=== PATIENT | male | born 1950 | race Caucasian/White ===

== ENCOUNTER 2021-06-26 15:10 | Emergency (ER) | payer MEDICARE, SELFPAY ==
--- NOTE | 2021-06-26 15:14 | ED.GENADULT ---
HPI - General Adult General Chief complaint: Ear Stated complaint: bilateral ear pain Time Seen by Provider: 06/26/21 15:14 Source: patient Mode of arrival: ambulatory Limitations: no limitations History of Present Illness HPI narrative: 70-year-old male patient presents to the [facility] with request to get his ears cleaned out. 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 Patient states his right ear is giving her more problems than the left. Patient states he did get some [id number] softener at [facility] that he has been using. Related Data Home Medications Medication Instructions Recorded Confirmed alprazolam 0.25 mg PO BID 06/26/21 06/26/21 bupropion HCl 150 mg PO BID 06/26/21 06/26/21 hydrocodone-acetaminophen 1 tablet PO TID 06/26/21 06/26/21 losartan 100 mg PO DAILY 06/26/21 06/26/21 sertraline 50 mg PO DAILY 06/26/21 06/26/21 Allergies Allergy/AdvReac Type Severity Reaction Status Date / Time Penicillins Allergy Mild Hives / Verified 06/26/21 15:37 Red Face Shrimp Allergy Unknown Hives Uncoded 06/26/21 15:37 STATINS AdvReac Unknown Muscle Pain Uncoded 06/26/21 15:37 Review of Systems Review of Systems: CONSTITUTIONAL: Denies fever, chills, or sweats. EYES: Denies visual changes, redness, or discharge. ENT: Denies rhinorrhea, congestion, sore throat, positive bilateral otalgia but that worse pain on the right than the left. CARDIOVASCULAR: Denies chest pain, palpitations, or edema. RESPIRATORY: Denies cough or dyspnea. GASTROINTESTINAL: Denies abdominal pain, nausea, vomiting, or diarrhea. GENITOURINARY: Denies dysuria or hematuria. SKIN: Denies rash or itching. MUSCULOSKELETAL: Denies back pain, joint pain, or myalgia. NEUROLOGIC: Denies headache, numbness, or weakness. PSYCHIATRIC: Denies anxiety or depression. ON LICENSE OF [facility] Past Medical History Medical History ADD (attention deficit disorder) Anxiety Arthritis Carpal tunnel syndrome of right wrist Cataracts, bilateral Colon polyps DDD (degenerative disc disease) Depression GERD (gastroesophageal reflux disease) Kidney stones Mitral valve prolapse Shoulder fracture, right UTI (urinary tract infection) Surgical History Surgical History History of carpal tunnel surgery rt wrist History of lumbar surgery Hx of arthroscopy of right knee Hx of cataract surgery bilateral Hx of cervical spine surgery Hx of colonoscopy Hx of local excision of skin lesion Hx of prostatectomy partial Hx of total knee arthroplasty lt knee Social History Social History Smoking status: Current every day smoker Gender identity (if verbalized by the patient): Male Comments At the time of my signature I agree with nursing past medical history, surgical, social, and family history. There is no relevant family history pertinent to the presenting complaint. Exam Narrative: GENERAL: Well-appearing, well-nourished, and in no acute distress. HEAD: Normocephalic, atraumatic. EYES: PERRLA and EOMI. ENT: Nares clear, no rhinorrhea or epistaxis. Mucous membranes moist. Unable to visualize eardrum to the left ear there is some cerumen present to the canal. Unable to visualize the right eardrum there does seem to be some impaction of the cerebrum. NECK: Supple. No lymphadenopathy CHEST: Clear to auscultation. No respiratory distress. HEART: Regular rate and rhythm. No murmur heard. Normal peripheral pulses. ABDOMEN: Soft, nontender, nondistended, normal active bowel sounds. EXTREMITIES: Normal range of motion. No edema. SKIN: Warm, dry, no rash. NEURO: No focal deficits. Alert and oriented x3. Course Course Level of Care: Express Care Visit Vital Signs Vital signs: Vital Signs Temperature 36.4 C L 06/26/21
[2021-06-26 15:30] VITALS: BP 147/78; PULSE 90; RESP 18; TEMP 36.4; O2SAT 96
[2021-06-26] MEDS: CARBAMIDE PEROXIDE 6.5% OT SOLN 15 ML BTL 5 DROP RIGHT EAR (15:46)
== END 2021-06-26 16:19 | disposition home or self-care (01) ==
PROVIDERS: Emergency Provider Nurse Practitioner Family
DX: H61.21 Impacted cerumen, right ear (principal); F17.200 Nicotine dependence, unspecified, uncomplicated; M19.90 Unspecified osteoarthritis, unspecified site; H26.9 Unspecified cataract; K21.9 Gastro-esophageal reflux disease without esophagitis; I34.1 Nonrheumatic mitral (valve) prolapse; Z96.652 Presence of left artificial knee joint; F41.9 Anxiety disorder, unspecified; F32.A Depression, unspecified
CPT/HCPCS: 69209; 99213; A9270; G0463

== ENCOUNTER 2022-11-23 12:22 | Emergency (ER) | payer MEDICARE, SELFPAY ==
--- NOTE | ~2022-11-23 | XR_ITS ---
EXAMINATION: XR wrist RT min 3V DATE: 11/23/2022 12:39 INDICATION: Ulnar-sided right wrist pain post injury TECHNIQUE: Posteroanterior, ulnar deviation, oblique, and lateral views of the right wrist were obtai mela. COMPARISON: none FINDINGS: 4 mm ulnar minus variance. Alignment is otherwise normal. No acute fracture. Polyarticular osteoarthr itis severe at the midcarpal joint, moderate at the triscaphe, first carpometacarpal and second and t hird metacarpophalangeal joints and mild at the remaining joints at the right wrist and visualized cherry nd. Corticated loose osteochondral bodies at the dorsal and volar aspects of the wrist and carpus. Mi ld soft tissue swelling at the ulnar side of the wrist. IMPRESSION: 1. 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 No acute osseous abno rmality. Reviewed, dictated and finalized at location B. IMPRESSION: 1. 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 No acute osseous abnormality.
[2022-11-23 12:31] VITALS: BP 146/118; PULSE 92; RESP 16; TEMP 36.5; O2SAT 95
--- NOTE | 2022-11-23 12:44 | ED.GENADULT ---
HPI - General Adult General Chief complaint: Extremity Injury, Upper Stated complaint: Swelling Rt Wrist Time Seen by Provider: 11/23/22 12:45 Source: patient Mode of arrival: ambulatory Limitations: no limitations History of Present Illness HPI narrative: 22-year-old male presented for complaint of right wrist pain and swelling for 4 days after opening a pickle jar and feeling a pop. Swelling worse on the radial aspect of the wrist. Reports decreased ROM to the wrist. Denies numbness, tingling or weakness of the hand; denies redness or bruising. History of right wrist fracture and wanted evaluation. Patient takes norco 10/325 for chronic back pain TID. Related Data Home Medications Medication Instructions Recorded Confirmed alprazolam 0.25 mg tablet 0.25 mg PO BID 06/26/21 11/23/22 bupropion HCl 150 mg tablet,12 hr 150 mg PO BID 06/26/21 11/23/22 sustained-release hydrocodone 10 mg-acetaminophen 1 tablet PO TID 06/26/21 11/23/22 325 mg tablet losartan 100 mg tablet 100 mg PO DAILY 06/26/21 11/23/22 sertraline 50 mg tablet 50 mg PO DAILY 06/26/21 11/23/22 Allergies Allergy/AdvReac Type Severity Reaction Status Date / Time Penicillins AdvReac Mild Hives / Verified 11/23/22 12:30 Red Face STATINS AdvReac Intermediate Muscle Pain Uncoded 11/23/22 12:30 Shrimp AdvReac Mild Hives Uncoded 11/23/22 12:30 Review of Systems Review of Systems: CONSTITUTIONAL: Denies body aches, fever, chills EYES: Denies visual changes ENT: Denies rhinorrhea, congestion CARDIOVASCULAR: Denies chest pain, palpitations, or edema. RESPIRATORY: Denies cough or dyspnea. GASTROINTESTINAL: Denies abdominal pain, nausea, vomiting, or diarrhea. SKIN: Denies rash, itching, or wounds. MUSCULOSKELETAL: per HPI NEUROLOGIC: Denies headache, numbness, tingling, or weakness. All systems reviewed & are unremarkable except as noted in HPI and below PMFSH Past Medical History Medical History ADD (attention deficit disorder) Anxiety Arthritis Carpal tunnel syndrome of right wrist Cataracts, bilateral Colon polyps DDD (degenerative disc disease) Depression GERD (gastroesophageal reflux disease) Kidney stones Mitral valve prolapse Shoulder fracture, right UTI (urinary tract infection) Surgical History Surgical History History of carpal tunnel surgery rt wrist History of lumbar surgery Hx of arthroscopy of right knee Hx of cataract surgery bilateral Hx of cervical spine surgery Hx of colonoscopy Hx of local excision of skin lesion Hx of prostatectomy partial Hx of total knee arthroplasty lt knee Social History Social History Smoking status: Current every day smoker Gender identity (if verbalized by the patient): Male Comments At time of signature, I have reviewed and agree with nursing past medical, surgical, social and family history unless otherwise noted. Please see nursing chart for further information. There is no relevant family history pertinent to the presenting complaint Exam Narrative: GENERAL: Well-appearing EYES: PERRLA, conjunctivae clear NECK: Supple. CHEST: Speaks in full sentences. No respiratory distress. HEART: Regular rate and rhythm. Normal and equal peripheral pulses. EXTREMITIES: Right wrist radial aspect with moderate swelling and tenderness; Limited range of motion at wrist due to pain with movement. Right hand has normal strength and sensation. No ecchymosis, No open wounds, or obvious deformity; alignment normal, pulse palpable and equal bilaterally, skin warm, dry, pink. Capillary refill less than 3 seconds. SKIN: Warm, dry, no rash. NEURO: Alert and oriented x3. PSYCH: Normal mood and affect Course Course Emergency Course: Patient is aware of diagnosis, understands and agrees to treatment plan. Ld
[2022-11-23 13:08] VITALS: BP 122/61; PULSE 87
== END 2022-11-23 13:10 | disposition home or self-care (01) ==
PROVIDERS: Emergency Provider Nurse Practitioner Family
DX: M25.531 Pain in right wrist (principal); M25.431 Effusion, right wrist; F17.200 Nicotine dependence, unspecified, uncomplicated; M19.90 Unspecified osteoarthritis, unspecified site; K21.9 Gastro-esophageal reflux disease without esophagitis; I34.1 Nonrheumatic mitral (valve) prolapse; F41.9 Anxiety disorder, unspecified; F32.A Depression, unspecified
CPT/HCPCS: 73110; 99213; G0463

== ENCOUNTER 2023-12-09 01:11 | Emergency (ER) | payer OTHER, SELFPAY ==
[2023-12-09] VITALS (20 sets, daily range): BP systolic 148–169; BP diastolic 75–84; PULSE 65–93; RESP 12–97; TEMP 36.1–36.8; O2SAT 92–98
--- NOTE | ~2023-12-09 | XR_ITS ---
XR chest 2V 12/09/2023 02:37 Indication: Chest pain Procedure: PA and lateral views of the chest Comparison: 10/27/2018 Findings: Borderline heart size. There is mild interstitial edema. No pleural effusion or pneumothora x. There is diffuse idiopathic skeletal hyperostosis (DISH) of the thoracic spine. There are changes of fusion at the cervicothoracic junction. Impression: 1: Borderline heart size with mild interstitial edema. Reviewed, dictated and finalized at location B. Impression: 1: Borderline heart size with mild interstitial edema.
--- NOTE | ~2023-12-09 | CT_ITS ---
EXAMINATION: CTA chest abdomen pelvis DATE: 12/09/2023 08:12 CDT INDICATION: Chest pain radiating to the back. TECHNIQUE: Computed tomographic angiography (CTA) of the chest, abdomen, and pelvis was performed wit h 100 mL Omnipaque-350 intravenous contrast. The dose-length product was 2001.69 mGy-cm. Maximum inte nsity projection 3D-reconstructions of the aorta and other arteries were constructed by the technolog ist on a separate workstation. COMPARISON: CT dated 05/27/2019. FINDINGS: CHEST CTA: Heart size normal. No thoracic lymphadenopathy. No evidence for aortic aneurysm or dissection. No sig nificant pleural or pericardial effusion. No thoracic lymphadenopathy. There is mild emphysema. No en dobronchial lesions. There is dependent atelectasis. There are are chronic displaced left eighth and ninth rib fractures with adjacent pleural thickening. ABDOMEN AND PELVIS CTA: Fatty infiltration of the liver. Gallbladder is thickened with possible pericholecystic fluid. The sp freddie, pancreas, adrenal glands are unremarkable. There is bilateral renal atrophy. Colonic diverticul osis without evidence for diverticulitis. There is a left total hip arthroplasty. Nonobstructive kt l gas pattern. No free air or free fluid. No significant vascular abnormality. There is partial ankyl osis of the sacroiliac joints. There is severe lumbar spondylosis. IMPRESSION: 1. Abnormally thickened gallbladder wall with possible pericholecystic fluid. Consider cholecystitis in the appropriate clinical setting. 2: No significant vascular abnormality of the chest, abdomen or pelvis. Reviewed, dictated and finalized at location B. IMPRESSION: 1. Abnormally thickened gallbladder wall with possible pericholecystic fluid. C onsider cholecystitis in the appropriate clinical setting. 2: No significant vascular abnormality of the chest, abdomen or pelvis.
--- NOTE | 2023-12-09 01:12 | ECG_ITS ---
Test Date: 2023-12-09 05:46:43 Measurements Intervals [place] Rate: 82 P: 33 GA: 132 QRS: -18 QRSD: 114 T: 44 QT: 393 QTc: 461 Interpretive Statements SINUS RHYTHM INTRAVENTRICULAR CONDUCTION DELAY BASELINE ARTIFACT- I, III, AVR, AVL, V2 BORDERLINE ECG No previous ECG available for comparison Electronically Signed On 12-09-2023 08:40:12 CDT by Alan Rivera D.O.
[2023-12-09 01:37] LABS: Basophils Percent Auto 0.4 % (0.2-1.2); Eosinophils Absolute Auto 0.2 K/mm3 (0-0.3); Eosinophils Percent Auto 1.9 % (0-4.4); Hematocrit 43.9 % (42.0-52.0); Hemoglobin 15.2 g/dL (14.0-18.0); Immature Granulocyte Absolute 0.05 K/mm3 (0.00-0.031); Immature Granulocyte Percent A 0.5 % (0-0.5); Lymphocytes Absolute Auto 1.96 K/mm3 (0.9-3.2); Lymphocytes Percent Auto 19.1 % (18.3-44.2); Mean Corpuscular HGB Conc 34.6 g/dl (32-36); Mean Corpuscular Hemoglobin 32.4 pg (26-34); Mean Corpuscular Volume 93.6 fl (80-100); Mean Platelet Volume 10.1 fl (7.4-10.4); Monocytes Absolute Auto 0.8 K/mm3 (0.1-0.6); Neutrophils Absolute Auto 7.2 K/mm3 (1.3-6.7); Neutrophils Percent Auto 70.1 % (45.5-73.1); Platelet Count Result 187 k/mm3 (150-375); Red Blood Count 4.69 M/mm3 (4.6-6.20); Red Cell Distribution Width 13.2 % (11.5-14.5); White Blood Count 10.3 K/mm3 (4.5-10.0)
[2023-12-09 01:49] LABS: Alanine Aminotransferase 17 U/L (6-50); Albumin Level 4.3 g/dL (3.5-5.1); Alkaline Phosphatase 72 U/L (38-126); Anion Gap 10 mmol/L (4-12); Aspartate Amino Transferase 28 U/L (17-59); Bilirubin,Total 0.8 mg/dL (0.2-1.3); Blood Urea Nitrogen 17 mg/dL (9-20); Calcium 8.5 mg/dL (8.4-10.2); Carbon Dioxide 25 mmol/L (22-30); Chloride 102 mmol/L (98-107); Estimated CRCL calculation 65 ml/min; Estimated Glomerular Filt Rate 54; Glucose 143 mg/dL (65-110); Lipase 50 U/L (23-300); Sodium 137 mmol/L (137-145)
[2023-12-09 01:51] LABS: Prothrombin Time 13.7 Seconds (11.1-14.7)
[2023-12-09 01:52] LABS: Partial Thromboplastin Time 29.1 Seconds (22.3-36.8)
[2023-12-09 02:01] LABS: Troponin I < 0.012 ng/mL (0.000-0.034)
[2023-12-09 06:12] LABS: Troponin I < 0.012 ng/mL (0.000-0.034)
--- NOTE | 2023-12-09 07:24 | ED.CHESTPAIN ---
HPI - Chest Pain General Chief Complaint: Chest Pain Stated Complaint: chest pain Time Seen by Provider: 12/09/23 06:56 Source: patient and family (daughter) Mode of arrival: ambulatory Limitations: no limitations History of Present Illness HPI narrative: This 73-year-old male presents chest pain radiates to his back. He states it was initially 10 10 in severity is currently 3/10. He states the pain is constant otherwise seems to be letting up. He initially thought it was acid reflux and tried famotidine this was not initially helping. He states the pain is shooting and deep. Associated the shortness of breath as well as nausea but no vomiting. He denies any diaphoresis. States he has never had pain like this before. Has a primary care physician. Prior diagnoses of hypertension hyperlipidemia. No prior myocardial infarction, TIA or CVA. He does smoke 1 pack per day. No diagnosis of diabetes mellitus. Brothter had a DC after age 64. Father required a pacemaker around the age of 65yo. He notes that he had a lung surgery in which they scraped his lungs in 2019 at [facility]. At that time was followed by a mangle feeder and a special services agent the does not follow with them routinely . Denies a prior diagnosis of asthma or COPD. Insert like it is swollen he states this is chronic ever since he broke his ankle during a skydiving accident in 1967. Related Data Home Medications Medication Instructions Recorded Confirmed alprazolam 0.25 mg tablet 0.25 mg PO BID 06/26/21 11/23/22 bupropion HCl 150 mg tablet,12 hr 150 mg PO BID 06/26/21 11/23/22 sustained-release hydrocodone 10 mg-acetaminophen 1 tablet PO TID 06/26/21 11/23/22 325 mg tablet losartan 100 mg tablet 100 mg PO DAILY 06/26/21 11/23/22 sertraline 50 mg tablet 50 mg PO DAILY 06/26/21 11/23/22 Allergies Allergy/AdvReac Type Severity Reaction Status Date / Time shrimp Allergy Mild Hives Verified 12/09/23 08:00 Penicillins AdvReac Mild Hives / Verified 11/23/22 12:30 Red Face STATINS AdvReac Intermediate Muscle Pain Uncoded 11/23/22 12:30 [facility] Past Medical History Medical History (Updated 12/10/23 @ 12:08 by Sharmila Ocampo MD) ADD (attention deficit disorder) Anxiety Arthritis Carpal tunnel syndrome of right wrist Cataracts, bilateral Colon polyps DDD (degenerative disc disease) Depression GERD (gastroesophageal reflux disease) History of fracture of right ankle skydiving accident 1967; resultant R leg swelling (chronic) Kidney stones Mitral valve prolapse Shoulder fracture, right UTI (urinary tract infection) Surgical History Surgical History (Updated 12/10/23 @ 12:10 by Sharmila Ocampo MD) History of carpal tunnel surgery rt wrist History of lumbar surgery History of lung surgery lungs scraped (?) 2019; [facility] Hx of arthroscopy of right knee Hx of cataract surgery bilateral Hx of cervical spine surgery Hx of colonoscopy Hx of local excision of skin lesion Hx of prostatectomy partial Hx of total knee arthroplasty lt knee Family History Family History (Updated 12/10/23 @ 12:13 by Sharmila Ocampo MD) Sibling Acute myocardial infarction after age 65 Father Pacemaker, Onset Age: 65 Social History Social History (Updated 12/10/23 @ 12:06 by Sharmila Ocampo MD) Smoking status: Current every day smoker Gender identity (if verbalized by the patient): Male Additional gender identity comments: 2018 Exam Narrative: GENERAL: Well-appearing, well-nourished, and in no acute distress. HEAD: Normocephalic, atraumatic. EYES: Non injected, non icteric ENT: Nares clear, no rhinorrhea or epistaxis. NECK: Supple. CHEST: Speaking in full sentences. No respiratory distress. Faint basillar wheezes bilaterally. HEART: Regular rate and rhythm. . ABDOMEN: Soft, nondistended. Protuberant. EXTREMITIES: Normal range of motion. Right leg swelling. SKIN: Warm, dry, no rash. NEURO
[2023-12-09] MEDS: IPRATROPIUM 0.5 MG/ALBUTEROL SULFATE 2.5 MG AMPUL.NEB 3 ML INHALATION (08:07)
[2023-12-09 08:21] LABS: Troponin I < 0.012 ng/mL (0.000-0.034)
[2023-12-09 08:25] LABS: NT Pro B Type Natriuretic Pept 77 pg/mL (19.9-100)
[2023-12-09 08:53] LABS: Influenza A QL RT-PCR Negative (Negative); Influenza B QL RT-PCR Negative (Negative); RSV RNA, RT-PCR Negative (Negative); SARS-CoV-2 RNA PCR Negative (Negative)
[2023-12-09] MEDS: ACETAMINOPHEN 500 MG TABLET 1000 MG PO (09:04)
== END 2023-12-09 09:12 | disposition home or self-care (01) ==
PROVIDERS: Emergency Medicine; Emergency Provider Student in an Organized Health Care Education/Training Program; PCP Emergency Medicine
DX: R07.9 Chest pain, unspecified (principal); J81.1 Chronic pulmonary edema; D72.829 Elevated white blood cell count, unspecified; R73.9 Hyperglycemia, unspecified; R06.2 Wheezing; R93.2 Abnormal findings on diagnostic imaging of liver and biliary tract; Z20.822 Contact with and (suspected) exposure to COVID-19; I10 Essential (primary) hypertension; I34.1 Nonrheumatic mitral (valve) prolapse; E78.5 Hyperlipidemia, unspecified; K21.9 Gastro-esophageal reflux disease without esophagitis; M19.90 Unspecified osteoarthritis, unspecified site; F32.A Depression, unspecified; F98.8 Other specified behavioral and emotional disorders with onset usually occurring in childhood and adolescence; F41.9 Anxiety disorder, unspecified; F17.210 Nicotine dependence, cigarettes, uncomplicated; Z96.652 Presence of left artificial knee joint; Z87.442 Personal history of urinary calculi; Z87.440 Personal history of urinary (tract) infections; Z86.010 Personal history of colon polyps; Z79.899 Other long term (current) drug therapy; Z98.42 Cataract extraction status, left eye; Z98.41 Cataract extraction status, right eye; Z90.79 Acquired absence of other genital organ(s); I45.9 Conduction disorder, unspecified
CPT/HCPCS: 36415; 71046; 71275; 74174; 80053; 83690; 83880; 84484; 85025; 85610; 85730; 87637; 93005; 94640; 99284; A9270; Q9967